=== PATIENT | male | born 1965 | race Caucasian/White ===

== ENCOUNTER → 2018-04-28 | Outpatient (CLI) | payer SELFPAY ==
[~2018-04-28] MED LIST: ASPIRIN 32325 MG/TAB PO; BENADRYL25 M2 PO; HCTZ 25MG TAB25 MG PO; LISINOPRIL/HCTZ1 TA1 PO; LISINOPRIL/HCTZ1 TA2 PO; LOPRESSOR 225 MG/TAB PO; LOPRESSOR100 MG PO; MEVACOR40 MG PO; NORVASC 5MG5 MG/TAB PO; PLAVIX 75MG TAB75 MG PO; PREDNISONE20 MG PO; PRINZIDE 12.5 M1 TA1 PO; WELLBUTRIN SR150 M1 PO; WELLBUTRIN SR200 MG PO; ZESTRIL20 MG PO; ZOCOR40 MG PO
[2018-04-28 13:22] LABS: COLLECTION METHOD CLEAN CATCH
[2018-04-28 13:27] LABS: BASO # 0.1 (0.0-0.2); BASO % 1.1 % (0.0-2.0); EOS # 0.2 (0.0-0.7); EOS % 1.8 % (0-4.0); GRAN # 5.3 (1.4-6.5); GRAN % 64.1 % (42.2-75.2); HEMOGLOBIN 16.9 g/dl (13.5-18.0); LYMPH % 24.4 % (20.0-51.0); MEAN CELL VOLUME 85 fl (80.0-100.0); MEAN CORPUSCULAR HEMOGLOBIN 29 pg (27.0-31.0); MEAN CORPUSCULAR HGB CONC 35 g/dl (33.0-37.0); MEAN PLATELET VOLUME 10.1 fl (7.4-10.4); MONO # 0.7 (0.1-0.6); MONO % 8.2 % (1.7-9.3); PLATELET COUNT 322 K/mm3 (130-400); RED BLOOD COUNT 5.79 M/mm3 (4.20-5.60); REDCELL DISTRIBUTION WIDTH-CV 14.7 % (11.5-14.5)
[2018-04-28 13:32] LABS: MUCOUS Present /lpf; PH 6 (5-8); SQUAMOUS EPITHELIAL None Seen /hpf; URINE APPEARANCE Hazy; URINE BACTERIA None Seen /hpf; URINE BILIRUBIN Negative (NEGATIVE); URINE BLOOD Negative (NEGATIVE); URINE COLOR Yellow; URINE GLUCOSE Negative (NEGATIVE); URINE KETONE Negative (NEGATIVE); URINE LEUKOCYTE ESTERASE Negative (NEGATIVE); URINE NITRATE Negative (NEGATIVE); URINE PROTEIN(semi-quant) 1+ (NEGATIVE); URINE RBC 0-2 /hpf; URINE UROBILINOGEN Negative (NEGATIVE)
[2018-04-28 14:21] LABS: ALBUMIN 4.4 gm/dL (3.5-5.0); BILIRUBIN,TOTAL 0.5 mg/dL (0.0-1.0); CALCIUM 10.5 mg/dL (8.4-10.2); CREATININE, serum 1.51 mg/dL (0.66-1.25); POTASSIUM 3.7 mmol/L (3.4-5.0); TOTAL PROTEIN 7.5 gm/dL (6.4-8.2)
[2018-04-28 14:51] LABS: THYROID STIMULATING HORMONE 3.76 uIU/mL (0.465-4.680)
== END ==
LOC: ZLAB.FHCC 11:52
PROVIDERS: Pediatrics Adolescent Medicine
DX: I10 Essential (primary) hypertension (principal); E78.5 Hyperlipidemia, unspecified

== ENCOUNTER → 2018-10-14 | Outpatient (CLI) | payer SELFPAY ==
[2018-10-14 15:32] LABS: CALCIUM 10.6 mg/dL (8.4-10.2); CREATININE, serum 1.59 (0.66-1.25); POTASSIUM 3.7 mmol/L (3.4-5.0)
== END ==
LOC: ZCOL.LAB 11:43
PROVIDERS: Physician Assistant
DX: Z01.89 Encounter for other specified special examinations (principal)

== ENCOUNTER → 2023-04-05 | Outpatient (CLI) | payer SELFPAY | LOC: COL.LAB 15:15 | DX: Z13.89 Encounter for screening for other disorder (principal) ==